=== PATIENT | male | born 1950 | race Caucasian/White ===

== ENCOUNTER 2017-09-22 08:24 | Day surgery (SDC) ==
[2017-09-22] MEDS: BETADINE OPTH PREP OP PRN ×2 (09:35→10:13)
[2017-09-22] MEDS: TETRACAINE 0.5% OPTH SOL OP PRN ×3 (09:35→10:35)
[2017-09-22] MEDS: CYCLOGYL 2% OPTH OP PRN ×3 (09:36→09:46)
[2017-09-22] MEDS ORDERED: DEX-MOXI-KETOR OPTH INJ 1/0.5/0.4 MG/ML IO ONE (09:42)
[2017-09-22] MEDS ORDERED: LIDOCAINE 1%/PHENYLEPHRINE 1.5% BSS (SURGERY) INTRAOCULA ONE (09:42)
[2017-09-22] MEDS ORDERED: LIDOCAINE 1% 20 ML MDV ID STA (09:42)
[2017-09-22] MEDS ORDERED: BRIMONIDINE TARTRATE 0.2% OPTH SOL OP PRN (09:42)
[2017-09-22] MEDS ORDERED: ZOFRAN 4 MG/2 ML IVP ONE (09:42)
[2017-09-22] MEDS ORDERED: AK-DILATE 10% OPTH SOL OP PRN (09:42)
[2017-09-22] MEDS ORDERED: NIRAVAM ODT (SURGERY) PO PRN (09:42)
[2017-09-22 09:49] VITALS: BP 133/84; TEMP 97.8
[2017-09-22] MEDS ORDERED: BSS WITH EPINEPHRINE OP ONE (10:00)
[2017-09-22] MEDS ORDERED: SUBLIMAZE ONE (10:20)
[2017-09-22] MEDS ORDERED: VERSED ONE (10:20)
== END 2017-09-22 11:30 | disposition home or self-care (01) ==
LOC: SURG 08:24
PROVIDERS: ATTEND Ophthalmology
DX: H25.811 Combined forms of age-related cataract, right eye (principal); H52.201 Unspecified astigmatism, right eye

== ENCOUNTER 2017-10-06 07:22 | Day surgery (SDC) ==
[2017-10-06] MEDS ORDERED: LIDOCAINE 1% 20 ML MDV ID STA (07:47)
[2017-10-06] MEDS ORDERED: BSS WITH EPINEPHRINE OP ONE (07:47)
[2017-10-06] MEDS ORDERED: ZOFRAN 4 MG/2 ML IVP ONE (07:47)
[2017-10-06] MEDS ORDERED: DEX-MOXI-KETOR OPTH INJ 1/0.5/0.4 MG/ML IO ONE (07:47)
[2017-10-06] MEDS ORDERED: LIDOCAINE 1%/PHENYLEPHRINE 1.5% BSS (SURGERY) INTRAOCULA ONE (07:47)
[2017-10-06] MEDS ORDERED: BRIMONIDINE TARTRATE 0.2% OPTH SOL OP PRN (07:47)
[2017-10-06] MEDS: BETADINE OPTH PREP OP PRN ×2 (07:55→08:19)
[2017-10-06] MEDS: TETRACAINE 0.5% UNIT-DOSE OP PRN ×2 (07:55→08:19)
[2017-10-06] MEDS: CYCLOGYL 2% OPTH OP PRN ×3 (07:55→08:05)
[2017-10-06] MEDS ORDERED: VERSED ONE (08:30)
[2017-10-06] MEDS ORDERED: SUBLIMAZE ONE (08:30)
[2017-10-06 11:46] VITALS: BP 157/89
== END 2017-10-06 09:15 | disposition home or self-care (01) ==
LOC: SURG 07:22
PROVIDERS: ATTEND Ophthalmology
DX: H25.812 Combined forms of age-related cataract, left eye (principal)